=== PATIENT | female | born 1965 | race African-American/Black ===

== ENCOUNTER → 2017-05-17 | Outpatient (CLI) | payer BC ==
[~2017-05-17] MED LIST: LISINOPRIL-HCT1 EACH; NORCO 5-325 TA1 EACH PO; VALIUM5 MG PO
== END ==
LOC: ULTRA 08:36
DX: R10.11 Right upper quadrant pain (principal)

== ENCOUNTER 2019-04-07 13:04 | Emergency (ER) | payer OTHER ==
[~2019-04-07] VITALS: Ht 162.6 cm; Wt 70.3 kg
[2019-04-07] MEDS ORDERED: NORVASC 2.5 MG2.5 M1 PO (13:12)
[2019-04-07 14:00] LABS: HEMOGLOBIN 12.1 gm/dL (12.0-15.0)
[2019-04-07 14:01] LABS: HEMATOCRIT 37.3 % (37.0-47.0); MCHC 32.4 g/dL (28.0-37.0); MCV 70.7 fL (80.0-100.0); PLATELET COUNT 270 thou/uL (150-400); RBC 5.27 mil/uL (4.20-5.00); RDW 14.9 % (10.5-14.5); WBC 7.6 thou/uL (4.0-11.0)
[2019-04-07 14:11] LABS: CALCIUM 9.6 mg/dL (8.5-10.1); CREATININE 0.8 mg/dL (0.6-1.0); POTASSIUM 3.5 mmol/L (3.5-5.1)
[2019-04-07 14:17] LABS: ALBUMIN 3.7 g/dL (3.4-5.0); TOTAL BILIRUBIN 0.3 mg/dL (<0.1-1.0); TOTAL PROTEIN 9.9 g/dL (6.4-8.2)
[2019-04-07 14:34] LABS: ABSOLUTE NEUTROPHILS 5.5 thou/uL (1.4-8.2)
[2019-04-07 14:35] LABS: ANISOCYTOSIS 1+; HYPOCHROMASIA 1+; MICROCYTES 1+; OVALOCYTES 1+; TARGET CELLS 3+
[2019-04-07] MEDS ORDERED: LEVSIN0.125 MG PO (15:31)
[2019-04-07] MEDS ORDERED: ONDANSETRON HCL4 M2 PO (15:31)
[2019-04-07 16:29] VITALS: BP 142/90
== END 2019-04-07 16:33 | disposition home or self-care (01) ==
LOC: ER 13:04
PROVIDERS: Physician Assistant
DX: R10.84 Generalized abdominal pain (principal); R10.13 Epigastric pain; R11.2 Nausea with vomiting, unspecified; I10 Essential (primary) hypertension

== ENCOUNTER → 2020-04-29 | Outpatient (CLI) | payer OTHER ==
[~2020-04-29] MED LIST changes: +LEVSIN0.125 MG PO; +NORVASC 2.5 MG2.5 M1 PO; +ONDANSETRON HCL4 M2 PO
== END ==
LOC: LAB 10:12
PROVIDERS: ATTEND Nurse Practitioner
DX: R05 Cough (principal); R09.89 Other specified symptoms and signs involving the circulatory and respiratory systems; Z20.828 Contact with and (suspected) exposure to other viral communicable diseases